=== PATIENT | female | born 1945 | race Asian ===

== ENCOUNTER 2019-05-17 21:32 | Emergency (ER) | payer OTHER ==
--- NOTE | 2019-05-17 21:35 | PDOC ---
Rapid Medical Evaluation Time Seen by Provider: 05/17/19 21:34 Medical Evaluation: 05/17/19 21:34 HPI: COVID-19 CDC guideline data points: The patient is a 73yo F presents with suspected COVID-19 with associated symptoms of fever, dry cough, SOB, complicated by this/these comorbidities: DM, HTN, HLD. ROS: NEGATIVE: difficulty breathing, chest pain, lightheadedness, dizziness, nausea, vomiting and diarrhea. Other 12 point ROS reviewed and negative. Exam: General: NAD, Well-Appearing, Awake, Alert Oriented x3. Vital signs stable. ENT: No rhinorrhea or nasal congestion. Neck: FROM, no midline tenderness. Lungs: Clear to auscultation bilaterally without wheezes, rhonchi or rales. Normal excursion. Patient is able to speak in full sentences. Heart: Regular rhythm, S1-S2 present, no murmurs rubs or gallops. Abdomen: Non-distended. MSK/Extremities: No decrease ROM, No obvious deformities. No obvious cyanosis noted. Neuro: Normal Gait, Cranial Nerves II through XII Grossly Intact. Skin: No obvious rashes, bruising. Color Normal Appearing. Assessment/Plan: Cough/fever/SOB Patient has a history of this/these comorbidities: HLD, HTN, DM, denies recent travel and known COVID exposure. Patient does not meet testing criteria at this time. ASSESSMENT: Denies recent travel and known Covid exposure. Treatment: CXR reassess Discharge Disposition - Diagnosis Suspected 2019 novel coronavirus infection - Referrals - Patient Instructions - Post Discharge Activity
[2019-05-17] MEDS ORDERED: ACETAMINOPHEN 325 MG TABLET (FP) PO ONE (21:42)
[2019-05-17 21:46] VITALS: BP 158/79; PULSE 80
--- NOTE | 2019-05-17 22:18 | PDOC ---
*Physical Exam - Vital Signs Last Vital Signs Temp Pulse Resp BP Pulse Ox 101.8 F H 80 18 158/79 95 05/17/19 21:33 05/17/19 21:33 05/17/19 21:33 05/17/19 21:33 05/17/19 21:33 - Physical Exam General Appearance: Yes: Nourished, Appropriately Dressed. No: Apparent Distress HEENT: positive: ALPESH, Normal ENT Inspection, Normal Voice, TMs Normal, Pharynx Normal Neck: positive: Rigid Respiratory/Chest: positive: Lungs Clear, Normal Breath Sounds. negative: Chest Tender, Respiratory Distress, Accessory Muscle Use Cardiovascular: positive: Regular Rhythm, Regular Rate Musculoskeletal: positive: Normal Inspection Extremity: positive: Normal Capillary Refill, Normal Inspection, Normal Range of Motion Integumentary: positive: Normal Color, Warm Neurologic: positive: visual basic .net developer II-XII NML intact, Fully Oriented, Normal Mood/Affect, Normal Response, Motor Strength 5/5 Medical Decision Making - Medical Decision Making 05/17/19 22:20 I assumed care of this 73yo with h/o HTN and HPL F BIBA with complains of SOB, fever and headache for 3 days. pt denies recent travel or sick contacts. Denies CP, sweats, difficulty breathing, weakness, N/V, dizziness exam as above A/P: 73 yo with h/o HTN and HPL presenting with 3 days h/o intermittent SOB, fever and GUADALUPE pt in NAD. exam wml pt with fever of 101.6F CXR ordered to r/o PNA Tylenol 650mg PO ordered for fever tx based CXR 05/17/19 22:46 CXR shows questional left lower lobe infiltrate. Patient stable for d/c on zpak advised on Tylenol for fever and Rx sent advised in increased fluid intake rest, self quarantine instructions given Discharge - Discharge Information Problems reviewed: Yes Clinical Impression/Diagnosis: Suspected 2019 novel coronavirus infection Pneumonia Qualifiers: Pneumonia type: due to unspecified organism Laterality: left Lung location: lower lobe of lung Qualified Code(s): J18.9 - Pneumonia, unspecified organism Condition: Stable Disposition: HOME - Admission No - Additional Discharge Information Prescriptions: Acetaminophen [Tylenol] 650 mg PO Q6H PRN #1 bottle PRN Reason: fever Azithromycin [Zithromax 250mg Tablets -] 250 mg PO UTDICT #6 tab - Follow up/Referral - Patient Discharge Instructions Patient Printed Discharge Instructions: [facility]on[facility] Instructions, [facility] COVID-19 Isolation Protocol Additional Instructions: You were seen for your cough and possible Coronavirus (COVID-19). Your chest x- rays shows early pneumonia for which antibiotics is sent to the pharmacy . Please call the [facility] testing center to make an appointment at or you can call [facility] at from 8:30 AM to 6 PM; or you can visit the [facility] website: [email or web address] for more information about testing at the [facility]. Take Tylenol 650 mg every 6 hours as needed for fever or pain. You may take Robitussin or other [id number]-[id number] cough syrup. Follow the dosing instructions on the bottle. Warm tea, honey, and salt water gargles may help your symptoms. Please take precautions and self quarantine for 2 weeks and follow-up with your primary care doctor and the Department of Health. Return to the nearest emergency department for shortness of breath, difficulty breathing, chest pain, or if you have any changes in your symptoms. - Post Discharge Activity
[2019-05-17 22:34] VITALS: TEMP 98
== END 2019-05-17 23:28 | disposition home or self-care (01) ==
LOC: JER 21:32
DX: J18.9 Pneumonia, unspecified organism (principal)
CPT/HCPCS: 71045-TC-FY; 99284-25